=== PATIENT | male | born 1950 | race Caucasian/White ===

== ENCOUNTER 2019-10-23 19:00 | Emergency (ER) | payer MEDICARE, OTHER ==
[2019-10-23] MEDS ORDERED: Morphine 2 MG/ML Syringe IVPUSH ONE (19:19)
[2019-10-23] MEDS ORDERED: Sodium Chloride 0.9% 10 ML Syringe FLUSH PRN (19:19)
--- NOTE | 2019-10-23 20:02 | EDM.PDOC ---
ED HPI GENERAL MEDICAL PROBLEM - General Chief Complaint: Upper Extremity Injury/Pain Stated Complaint: FELL DOWN THE STAIRS, RIGHT SIDE AND ARM Time Seen by Provider: 10/23/19 19:20 Source of Information: Reports: Patient History Limitations: Reports: No Limitations - History of Present Illness INITIAL COMMENTS - FREE TEXT/NARRATIVE: This 69 yo male reports to the ED with right arm pain. The patient reports he missed a step while getting off his deck and fell down 4-5 stairs. The patient reports increased pain in the mid upper arm. The patient came with his arm splinted with a sling. The patient reports previous surgeries on his forearm and upper arm. The patient denies any loss of consciousness before, during or after the fall. The patient denies hitting his head, shortness of breath or any additional pain or problems. 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) Right Upper Arm Pain Score (Numeric/FACES): 5 - Related Data Allergies Allergy/AdvReac Type Severity Reaction Status Date / Time No Known Allergies Allergy Verified 10/23/19 19:09 Past Medical History Respiratory History: Reports: Asthma Gastrointestinal History: Reports: GERD Musculoskeletal History: Reports: Amputation Social & Family History - Family History Family Medical History: Noncontributory - Tobacco Use Smoking Status *Q: Current Every Day Smoker Years of Tobacco use: 51 Packs/Tins Daily: 2 Second Hand Smoke Exposure: Yes - Caffeine Use Caffeine Use: Reports: Coffee - Recreational Drug Use Recreational Drug Use: No Review of Systems - Review of Systems Review Of Systems: Comprehensive ROS is negative, except as noted in HPI. ED EXAM, GENERAL - Physical Exam Exam: See Below Exam Limited By: No Limitations General Appearance: Alert, WD/WN, Mild Distress Eye Exam: Bilateral Eye: EOMI, Normal Inspection, PERRL Ears: Normal External Exam, Normal Canal, Hearing Grossly Normal, Normal TMs Nose: Normal Inspection, Normal Mucosa, No Blood Throat/Mouth: Normal Inspection, Normal Lips, Normal Teeth, Normal Gums, Normal Oropharynx, Normal Voice, No Airway Compromise Head: Atraumatic, Normocephalic Neck: Normal Inspection, Supple, Non-Tender, Full Range of Motion Respiratory/Chest: No Respiratory Distress, Lungs Clear, Normal Breath Sounds, No Accessory Muscle Use, Chest Non-Tender Cardiovascular: Normal Peripheral Pulses, Regular Rate, Rhythm, No Edema, No Gallop, No JVD, No Murmur, No Rub GI/Abdominal: Normal Bowel Sounds, Soft, Non-Tender, No Organomegaly, No Distention, No Abnormal Bruit, No Mass (Male) Exam: Deferred Rectal (Males) Exam: Deferred Extremities: Arm Pain (Right upper mid arm pain ) Neurological: Alert, Oriented, CN II-XII Intact, Normal Cognition, Normal Gait, Normal Reflexes, No Motor/Sensory Deficits Psychiatric: Normal Affect, Normal Mood Skin Exam: Warm, Dry, Intact, Normal Color, No Rash Lymphatic: No Adenopathy Course - Vital Signs Last Recorded V/S: Last Vital Signs Temp 36.3 C 10/23/19 19:11 Pulse 86 10/23/19 19:11 Resp 20 10/23/19 19:11 BP 157/85 H 10/23/19 19:11 Pulse Ox 97 10/23/19 19:11 - Orders/Labs/Meds Orders: Active Orders 24 hr Category Date Time Status Sodium Chloride 0.9% [Saline Flush] Med 10/23/19 19:19 Ordered 10 ml FLUSH ASDIRECTED PRN Saline Lock Insert [OM.PC] Routine Oth 10/23/19 19:19 Ordered Medication Orders Sodium Chloride (Saline Flush) 10 ml FLUSH ASDIRECTED PRN PRN Reason: Keep Vein Open Last Admin: 10/23/19 19:41 Dose: 10 ml Meds: Medications Generic Name Dose Route Start Last Admin Trade Name Freq PRN Reason Stop Dose Admin Sodium Chloride 10 ml 10/23/19 19:19 10/23/19 19:41 Saline Flush FLUSH 10 ml ASDIRECTED PRN Administration Keep Vein Open Discontinued Medications Generic Name Dose Route Start Last Admin Trade Name Freq PRN Reason Stop Dose Admin Morphine Sulfate 2 mg 10/23/19 19:19 10/23/19 19:38 Morphine IVPUSH 10/23/19 19:20 2 mg ONETIME ONE Administration - Radiology Interpretation Free Text/Narrative:: PROCEDURE INFORMATION: Exam: XR Right Humerus Exam date and time: 10/23/2019 7:28 PM Age: 69 years old Clinical indication: Other: Fall/pain; Prior surgery; Surgery date: 6+ months TECHNIQUE: Imaging protocol: XR Right humerus Views: 2 or more views. COMPARISON: No relevant prior studies available. FINDINGS: Bones/joints: There is a transverse fracture through the humeral diaphysis at the proximal margin of and orthopedic plate. The fracture also extends around the proximal screw of the plate. Fracture is mildly medially angulated and anteriorly displaced. No other fracture is seen. Soft tissues: Normal. IMPRESSION: Transverse fracture of the right humerus at the proximal margin of the orthopedic plate. Thank you for allowing us to participate in the care of your patient. Dictated and Authenticated by: Shorty Restrepo MD 10/23/2019 7:59 PM Central Time ( & [place]) PROCEDURE INFORMATION: Exam: XR Right Forearm Exam date and time: 10/23/2019 7:32 PM Age: 69 years old Clinical indication: Other: Fall/pain; Prior surgery; Surgery date: 6+ months TECHNIQUE: Imaging protocol: XR Right forearm. Views: 2 views. COMPARISON: CR Humerus Rt 10/23/2019 7:28 PM FINDINGS: Bones/joints: Orthopedic plates and screws in the radius and ulna are intact. Normal alignment. There is a small fracture of the dorsal surface of the triquetrum. No other acute fracture. Soft tissues: Normal. IMPRESSION: 1. Small fracture of the dorsal surface of the triquetrum. 2. No other fracture or malalignment. Thank you for allowing us to participate in the care of your patient. Dictated and Authenticated by: Shorty Restrepo MD 10/23/2019 8:01 PM Central Time ( & [place]) Departure - Departure Time of Disposition: 20:50 Disposition: Home, Self-Care 01 Condition: Fair Clinical Impression: Right humeral fracture Qualifiers: Encounter type: initial encounter Humerus Location: shaft Fracture type: closed Fracture morphology: transverse Fracture alignment: nondisplaced Qualified Code(s): S42.324A - Nondisplaced transverse fracture of shaft of humerus, right arm, initial encounter for closed fracture Fracture of triquetrum of right wrist, closed Qualifiers: Encounter type: initial encounter Fracture alignment: nondisplaced Qualified Code(s): S62.114A - Nondisplaced fracture of triquetrum [cuneiform] bone, right wrist, initial encounter for closed fracture - Discharge Information *PRESCRIPTION DRUG MONITORING PROGRAM REVIEWED*: Not Applicable *COPY OF PRESCRIPTION DRUG MONITORING REPORT IN PATIENT [facility]: Not Applicable Forms: ED Department Discharge Care Plan Goals: The patient was advised of the examination and x-ray results during the visit. The patient was given IV morphine and an oral dose of Thiells while in the ED. The patient was discharged with a script for Thiells (5/325) #10 to take 1 by mouth every 6 hours as needed for pain. The patient should follow-up with Dr. Castellon ([facility], [address] [place] [address]) on Saturday. The patient may show up at [address] Castellon. The x-ray images have been pushed to Dr. Castellon. If the patient has any additional symptoms or concerns , the patient should either return to the emergency department or visit his primary care facility. Sepsis Event Note - Evaluation Sepsis Screening Result: No Definite Risk - Focused Exam Vital Signs: Vital Signs Temp Pulse Resp BP Pulse Ox 10/23/19 19:11 36.3 C 86 20 157/85 H 97 Date Exam was Performed: 10/23/19 Time Exam was Performed: 20:49 - My Orders Last 24 Hours: My Active Orders 10/23/19 19:19 Sodium Chloride 0.9% [Saline Flush] 10 ml FLUSH ASDIRECTED PRN Saline Lock Insert [OM.PC] Routine - Assessment/Plan Last 24 Hours: My Active Orders 10/23/19 19:19 Sodium Chloride 0.9% [Saline Flush] 10 ml FLUSH ASDIRECTED PRN Saline Lock Insert [OM.PC] Routine
[2019-10-23] MEDS ORDERED: Acetaminophen/HYDROcodone 325-10 MG Tab PO ONE (20:49)
== END 2019-10-23 20:53 | disposition home or self-care (01) ==
LOC: DL.ED 19:00
DX: S62.114A Nondisplaced fracture of triquetrum [cuneiform] bone, right wrist, initial encounter for closed fracture (principal); S42.324A Nondisplaced transverse fracture of shaft of humerus, right arm, initial encounter for closed fracture; J45.909 Unspecified asthma, uncomplicated; F17.210 Nicotine dependence, cigarettes, uncomplicated; W10.9XXA Fall (on) (from) unspecified stairs and steps, initial encounter
CPT/HCPCS: 73060; 73090; 96374; 99283; A9270; J2270; 99284